=== PATIENT | female | born 1965 | race Caucasian/White ===

== ENCOUNTER 2016-04-17 17:59 | Emergency (ER) | payer BC ==
--- NOTE | 2016-04-17 18:30 | ED.PDOC ---
History of Present Illness - General Chief Complaint: Upper Extremity Injury Stated Complaint: thumb pain s/p fall Time Seen by Provider: 04/17/16 18:28 Source: patient Exam Limitations: no limitations - History of Present Illness Initial Comments: Patient stated while coming out of the store at a gas station while talking to her friend she trippedfell to the ground and was able to brace her fall with her right thumb.Denies dizziness,head or neck injuries,hip,knee,or foot pain.She stated it happened at one of the gas station in [place] this pm. Occurred: this afternoon Pain - Upper Extremity: moderate: Hand, right - thumb Method of Injury: fell Improving Factors: nothing Worsening Factors: movement Associated Symptoms: pain movement right thumb Allergies/Adverse Reactions: Allergies Cephalexin [From Keflex] Allergy (Verified 06/24/14 16:43) Penicillin G Allergy (Verified 06/24/14 16:43) Venlafaxine [From Effexor] Allergy (Verified 06/24/14 16:43) Home Medications: Ambulatory Orders Carbamazepine [Tegretol-Xr] 200 mg PO BEDTIME 01/07/14 Carbamazepine [Tegretol-Xr] 400 mg PO DAILY 01/07/14 Acetaminophen W/ Codeine [Tylenol w/Codeine 300-30 mg] 1 tab PO Q6-8H PRN #30 tab 06/24/14 Ciprofloxacin [Cipro] 500 mg PO BID #14 tab 12/17/14 Ibuprofen [Motrin Tab] 600 mg PO Q8H PRN #15 tab 12/17/14 traMADol 37.5MG/APAP 325MG [Ultracet] 1 ea PO Q6H PRN #12 tab 12/17/14 Review of Systems - Review of Systems Constitutional: States: no symptoms reported EENTM: States: no symptoms reported Respiratory: States: no symptoms reported Cardiology: States: no symptoms reported Gastrointestinal/Abdominal: States: no symptoms reported Genitourinary: States: no symptoms reported Musculoskeletal: States: see HPI, joint pain - right thumb mcp joint Skin: States: no symptoms reported Neurological: States: no symptoms reported Endocrine: States: no symptoms reported Past Medical History (General) - Patient Medical History Hx Seizures: No Hx Stroke: No Hx Dementia: No Hx Asthma: Yes Hx of COPD: No Hx Cardiac Disorders: No Hx Congestive Heart Failure: No Hx Pacemaker: No Hx Hypertension: No Hx Thyroid Disease: Yes Hx Diabetes: No Hx Gastroesophageal Reflux: No Hx Renal Disease: No Hx Cancer: No Hx of HIV: No Hx Hepatitis C: No Hx MRSA: No Hx Other PMH: Yes - bipolar,anxiety Surgical History: appendectomy, cholecystectomy, other - neck,tahbso - Vaccination History Hx Tetanus, Diphtheria Vaccination: No Hx Influenza Vaccination: No Hx Pneumococcal Vaccination: No - Social History Hx Tobacco Use: No Hx Chewing Tobacco Use: No Hx Alcohol Use: No Hx Substance Use: No Hx Substance Use Treatment: No Hx Depression: No Hx Physical Abuse: No Hx Emotional Abuse: No Hx Suspected Abuse: No - Activities of Daily Living Patient Lives Alone: No - lives with family Hospice Agency (if applicable):: None - Female History Patient is a Female of Child Bearing Age (10 -59 yrs old): No Patient : No Family Medical History - Family History Brother Living Status: Hx Family Cancer: Yes - melanoma-brother,leukemia-mom, Hx Family;Other: non hodgkins lymphoma daughter Mother Living Status: Still Living Hx Family Cancer: Yes - leukemia Father Living Status: Still Living Hx Family Hypertension: Yes Hx Cardiac Disease: Yes Physical Exam - Physical Exam General Appearance: Alert, Comfortable, No apparent distress, Other - left handed Eyes, Ears, Nose, Throat Exam: PERRL/EOMI, normal ENT inspection, TMs normal, pharynx normal Neck: non-tender, full range of motion, supple, normal inspection Cardiovascular/Respiratory: regular rate, rhythm, no M/R/G, normal peripheral pulses, no JVD Abdominal Exam: non-tender, no organomegaly Back Exam: normal inspection, no CVA tenderness, no vertebral tenderness Shoulder Exam: non-tender, no evidence of injury Elbow/Forearm Exam: non-tender, no evidence of injury Wrist Exam: non-tender, no evidence of injury Hand Exam: bone tenderness - right thumb, limited ROM - right thumb, soft tissue tenderness Neuro/Tendon: normal sensation, normal motor functions, normal tendon functions , responds to pain, no evidence tendon injury Mental Status: alert, oriented x 3 Skin Exam: normal color, warm/dry Progress - Results/Orders Results/Orders: Velcro right thumb spica applied by the nurse - EKG/XRAY/CT XRAY: right thumb-no fracture Departure - Departure Clinical Impression: Fall on same level from slipping, tripping and stumbling Sprain of right thumb Qualifiers: Encounter type: initial encounter Qualifier Code: (S63.601A) Unspecified sprain of right thumb, initial encounter Time of Disposition: 19:26 Disposition: Discharge to Home or Self Care Condition: Good Departure Forms: ED Discharge - Pt. Copy, Patient Portal Self Enrollment Instructions: Finger Sprain, DI for Finger Sprain Home Medications: Ambulatory Orders Carbamazepine [Tegretol-Xr] 200 mg PO BEDTIME 01/07/14 Carbamazepine [Tegretol-Xr] 400 mg PO DAILY 01/07/14 Acetaminophen W/ Codeine [Tylenol w/Codeine 300-30 mg] 1 tab PO Q6-8H PRN #30 tab 06/24/14 Ciprofloxacin [Cipro] 500 mg PO BID #14 tab 12/17/14 Ibuprofen [Motrin Tab] 600 mg PO Q8H PRN #15 tab 12/17/14 traMADol 37.5MG/APAP 325MG [Ultracet] 1 ea PO Q6H PRN #12 tab 12/17/14 Additional Instructions: Continue with ice pack 15 minutes 3x a day during waking hours only until better ;Elevate right hand 20 degrees at bedtime;FOLLOW UP WITH PRIMARY MD IN ONE WEEK
--- NOTE | 2016-04-17 19:17 | RAD ---
EXAM: Thumb,Right CLINICAL INDICATION: 50-year-old female status post fall. COMPARISON: None. TECHNIQUE: Three views first digit RIGHT hand were obtained in AP, lateral and oblique projections FINDINGS: RIGHT hand first digit: There is no fracture or dislocation. The joint spaces are preserved. No soft tissue abnormalities are seen. IMPRESSION: No acute radiographic abnormality. Electronically signed by: Paula Wodos MD 04/17/2016 6:40 PM CORE COMPOSER FEEDER
[2016-04-17 19:29] VITALS: O2SAT 98
[2016-04-17 19:40] VITALS: BP 150/86; TEMP 98.2
[2016-04-17] MEDS: traMADol HCL 50 MG (ER DISP) # 6 TABS PO ONE (22:48)
--- NOTE | 2016-04-20 14:09 | RAD ---
EXAM: Thumb,Right CLINICAL INDICATION: 50-year-old female status post fall. COMPARISON: None. TECHNIQUE: Three views first digit RIGHT hand were obtained in AP, lateral and oblique projections FINDINGS: RIGHT hand first digit: There is no fracture or dislocation. The joint spaces are preserved. No soft tissue abnormalities are seen. IMPRESSION: No acute radiographic abnormality. Electronically signed by: Paula Woods MD 04/17/2016 6:40 PM PROFESSOR OF EDUCATION
--- NOTE | 2016-05-14 23:49 | RAD ---
EXAM: Thumb,Right CLINICAL INDICATION: 50-year-old female status post fall. COMPARISON: None. TECHNIQUE: Three views first digit RIGHT hand were obtained in AP, lateral and oblique projections FINDINGS: RIGHT hand first digit: There is no fracture or dislocation. The joint spaces are preserved. No soft tissue abnormalities are seen. IMPRESSION: No acute radiographic abnormality. Electronically signed by: Paula Woods MD 04/17/2016 6:40 PM SENIOR ACCOUNTING MANAGER
--- NOTE | 2016-05-14 23:49 | RAD ---
EXAM: Thumb,Right CLINICAL INDICATION: 50-year-old female status post fall. COMPARISON: None. TECHNIQUE: Three views first digit RIGHT hand were obtained in AP, lateral and oblique projections FINDINGS: RIGHT hand first digit: There is no fracture or dislocation. The joint spaces are preserved. No soft tissue abnormalities are seen. IMPRESSION: No acute radiographic abnormality. Electronically signed by: Paula Woods MD 04/17/2016 6:40 PM STOCKROOM INVENTORY CLERK
== END 2016-04-17 19:39 | disposition home or self-care (01) ==
LOC: ER 17:59
DX: S63.601A Unspecified sprain of right thumb, initial encounter (principal); E07.9 Disorder of thyroid, unspecified; Z88.0 Allergy status to penicillin; Z88.3 Allergy status to other anti-infective agents; Z79.899 Other long term (current) drug therapy; Z80.6 Family history of leukemia; J45.909 Unspecified asthma, uncomplicated; W01.0XXA Fall on same level from slipping, tripping and stumbling without subsequent striking against object, initial encounter; Y92.524 Gas station as the place of occurrence of the external cause

== ENCOUNTER 2016-06-03 17:19 | Emergency (ER) | payer BC ==
--- NOTE | 2016-06-03 17:50 | ED.PDOC ---
History of Present Illness - General Chief Complaint: Respiratory Problem Stated Complaint: SOB and hands cramping up Time Seen by Provider: 06/03/16 17:32 Source: patient, RN notes reviewed, Vital Signs reviewed Exam Limitations: no limitations - History of Present Illness Initial Comments: Patient reports she was having a bowel movement when she developed some abd pain and felt like she was going to pass out. Her hands started cramping up and she got scared and called EMS. When they got there she was hyperventilating and appeared very anxious. She was just seen in ER in [place] yesterday and was diagnosed with acute bronchitis and is on Zithromax and Promethazine DM cough syrup. Reports she now feels fine and is having no symptoms. Timing/Duration: 1 hour Severity: severe Activities at Onset: other - was having a bowel movement. Possible Cause: occasional episodes - Years ago she had a panic attack. Improving Factors: rest Worsening Factors: nothing Associated Symptoms: anxiety, cough, lightheadedness Respiratory Risk Factors: other - currently has bronchitis Allergies/Adverse Reactions: Allergies Cephalexin [From Keflex] Allergy (Verified 06/24/14 16:43) Penicillin G Allergy (Verified 06/24/14 16:43) Venlafaxine [From Effexor] Allergy (Verified 06/24/14 16:43) Home Medications: Ambulatory Orders Carbamazepine [Tegretol-Xr] 200 mg PO BEDTIME 01/07/14 Carbamazepine [Tegretol-Xr] 400 mg PO DAILY 01/07/14 Acetaminophen W/ Codeine [Tylenol w/Codeine 300-30 mg] 1 tab PO Q6-8H PRN #30 tab 06/24/14 Ciprofloxacin [Cipro] 500 mg PO BID #14 tab 12/17/14 Ibuprofen [Motrin Tab] 600 mg PO Q8H PRN #15 tab 12/17/14 traMADol 37.5MG/APAP 325MG [Ultracet] 1 ea PO Q6H PRN #12 tab 12/17/14 Review of Systems - Review of Systems Constitutional: States: no symptoms reported. Denies: chills, diaphoresis, fever, malaise, weakness EENTM: States: ear pain - on Right, other - Sinus pain on Right Respiratory: States: cough, short of breath. Denies: orthopnea, stridor, wheezing Cardiology: States: no symptoms reported. Denies: chest pain, edema, palpitations, syncope Gastrointestinal/Abdominal: States: abdominal pain. Denies: constipation, diarrhea, nausea, vomiting Genitourinary: States: no symptoms reported Musculoskeletal: States: muscle stiffness - bilateral hand cramping Skin: States: no symptoms reported Neurological: States: anxiety, headache. Denies: numbness, paresthesia, pre- existing deficit, tingling, tremors Endocrine: States: no symptoms reported Past Medical History (General) - Patient Medical History Hx Seizures: No Hx Stroke: No Hx Dementia: No Hx Asthma: Yes Hx of COPD: No Hx Cardiac Disorders: No Hx Congestive Heart Failure: No Hx Pacemaker: No Hx Hypertension: No Hx Thyroid Disease: Yes Hx Diabetes: No Hx Gastroesophageal Reflux: No Hx Renal Disease: No Hx Cancer: No Hx of HIV: No Hx Hepatitis C: No Hx MRSA: No - Vaccination History Hx Tetanus, Diphtheria Vaccination: No Hx Influenza Vaccination: No Hx Pneumococcal Vaccination: No - Social History Hx Tobacco Use: No Hx Chewing Tobacco Use: No Hx Alcohol Use: No Hx Substance Use: No Hx Substance Use Treatment: No Hx Depression: No Hx Physical Abuse: No Hx Emotional Abuse: No Hx Suspected Abuse: No - Female History Patient : No Family Medical History - Family History Brother Living Status: Hx Family Cancer: Yes - melanoma-brother,leukemia-mom, Hx Family;Other: non hodgkins lymphoma daughter Mother Living Status: Still Living Hx Family Cancer: Yes - leukemia Father Living Status: Still Living Hx Family Hypertension: Yes Hx Cardiac Disease: Yes Physical Exam - Physical Exam General Appearance: Alert, Comfortable, No apparent distress, Well Developed, Well Groomed, Well Hydrated, Well Nourished Neck: non-tender, full range of motion, supple, normal inspection Respiratory: chest non-tender, lungs clear, normal breath sounds, no respiratory distress, no accessory muscle use Cardiovascular/Chest: regular rate, rhythm, no edema, no gallop, no JVD, no murmur Extremity: normal range of motion, non-tender, normal inspection Neurologic: thread winder II-XII nml as tested, no motor/sensory deficits, alert, normal mood/affect, oriented x 3 Skin Exam: normal color, warm/dry Lymphatic: no adenopathy Progress - Progress Progress: 06/03/16 18:26 Patient is feeling fine and would like to go home. Departure - Departure Clinical Impression: Vagal reaction, Hyperventilation, Panic attack Time of Disposition: 18:27 Disposition: Discharge to Home or Self Care Condition: Good Departure Forms: ED Discharge - Pt. Copy, Patient Portal Self Enrollment Instructions: DI for Hyperventilation, DI for Panic Disorder Diet: resume usual diet Activity: increase activity as tolerated Home Medications: Ambulatory Orders Carbamazepine [Tegretol-Xr] 200 mg PO BEDTIME 01/07/14 Carbamazepine [Tegretol-Xr] 400 mg PO DAILY 01/07/14 Acetaminophen W/ Codeine [Tylenol w/Codeine 300-30 mg] 1 tab PO Q6-8H PRN #30 tab 06/24/14 Ciprofloxacin [Cipro] 500 mg PO BID #14 tab 12/17/14 Ibuprofen [Motrin Tab] 600 mg PO Q8H PRN #15 tab 12/17/14 traMADol 37.5MG/APAP 325MG [Ultracet] 1 ea PO Q6H PRN #12 tab 12/17/14
[2016-06-03 18:46] VITALS: BP 118/63; O2SAT 99
[2016-06-04 08:38] VITALS: TEMP 99.7
== END 2016-06-03 18:44 | disposition home or self-care (01) ==
LOC: ER 17:19
DX: F41.0 Panic disorder [episodic paroxysmal anxiety] (principal); R06.4 Hyperventilation; J45.909 Unspecified asthma, uncomplicated; E07.9 Disorder of thyroid, unspecified; Z88.0 Allergy status to penicillin; Z88.3 Allergy status to other anti-infective agents; Z79.899 Other long term (current) drug therapy

== ENCOUNTER 2016-09-12 08:39 | Emergency (ER) | payer BC, OTHER ==
[2016-09-12 08:51] VITALS: TEMP 97.9
--- NOTE | 2016-09-12 09:02 | ED.PDOC ---
History of Present Illness - General Chief Complaint: General Stated Complaint: nausea, joint pain Time Seen by Provider: 09/12/16 08:54 Source: patient, RN notes reviewed, Vital Signs reviewed Exam Limitations: no limitations - History of Present Illness Initial Comments: Patient comes in with generalized body aches that are worse in her elbows and her knees and nausea that started yesterday. Not improving with OTC and prescription medications, Reglan, Lidocaine cream, Tylenol, Tyl #3, etc. Denies fever, chills, vomiting or diarrhea. + urinary urgency and frequency. Generalized abd discomfort for ~1 month. + back pain. Timing/Duration: 24 hours Severity: moderate Improving Factors: nothing Worsening Factors: nothing Associated Symptoms: nausea/vomiting Allergies/Adverse Reactions: Allergies Cephalexin [From Keflex] Allergy (Verified 09/12/16 08:51) Penicillin G Allergy (Verified 09/12/16 08:51) Venlafaxine [From Effexor] Allergy (Verified 09/12/16 08:51) Home Medications: Ambulatory Orders Carbamazepine [Tegretol] 200 mg PO BEDTIME 06/04/16 Paroxetine HCl [Paxil] 40 mg PO BEDTIME 06/04/16 Ondansetron Odt [Zofran ODT] 8 mg PO Q6HR PRN #12 tab 09/12/16 Review of Systems - Review of Systems Constitutional: States: malaise. Denies: chills, fever, weakness EENTM: States: no symptoms reported Respiratory: States: no symptoms reported Cardiology: States: no symptoms reported Gastrointestinal/Abdominal: States: see HPI, abdominal pain - mild, generalized , nausea. Denies: constipation, diarrhea, vomiting Genitourinary: States: frequency, other - urgency. Denies: dysuria, pain Musculoskeletal: States: back pain, joint pain Skin: States: no symptoms reported Neurological: States: no symptoms reported All other Systems: No Change from Baseline Past Medical History (General) - Patient Medical History Hx Seizures: No Hx Stroke: No Hx Dementia: No Hx Asthma: Yes Hx of COPD: No Hx Cardiac Disorders: No Hx Congestive Heart Failure: No Hx Pacemaker: No Hx Hypertension: No Hx Thyroid Disease: Yes Hx Diabetes: No Hx Gastroesophageal Reflux: No Hx Renal Disease: No Hx Cancer: No Hx of HIV: No Hx Hepatitis C: No Hx MRSA: No Surgical History: appendectomy, cholecystectomy - Vaccination History Hx Tetanus, Diphtheria Vaccination: Yes Hx Influenza Vaccination: Yes Hx Pneumococcal Vaccination: Yes - Social History Hx Tobacco Use: No Hx Chewing Tobacco Use: No Hx Alcohol Use: No Hx Substance Use: No Hx Substance Use Treatment: No Hx Depression: No Hx Physical Abuse: No Hx Emotional Abuse: No Hx Suspected Abuse: No - Activities of Daily Living Hospice Agency (if applicable):: None - Female History Patient is a Female of Child Bearing Age (10 -59 yrs old): No Patient : No Family Medical History - Family History Brother Living Status: Hx Family Cancer: Yes - melanoma-brother,leukemia-mom, Hx Family;Other: non hodgkins lymphoma daughter Mother Living Status: Still Living Hx Family Cancer: Yes - leukemia Father Living Status: Still Living Hx Family Hypertension: Yes Hx Cardiac Disease: Yes Physical Exam - Physical Exam General Appearance: Alert, Comfortable, No apparent distress, Well Developed, Well Groomed, Well Hydrated, Well Nourished Ears, Nose, Throat: hearing grossly normal Neck: full range of motion, supple, normal inspection Respiratory: lungs clear, normal breath sounds, no respiratory distress, no accessory muscle use Cardiovascular/Chest: regular rate, rhythm, no gallop, no JVD, no murmur Gastrointestinal/Abdominal: normal bowel sounds, non tender, soft, no organomegaly, no pulsatile mass Back Exam: no CVA tenderness, no vertebral tenderness Extremity: normal range of motion, normal inspection Neurologic: alert, normal mood/affect, oriented x 3 Skin Exam: normal color Comments: Vital Signs 09/12/16 08:45 Temperature 97.9 F Pulse Rate [ 94 H pulse ox] Respiratory 20 Rate Blood Pressure 153/88 [Left Arm] O2 Sat by Pulse 96 Oximetry Progress - Progress Progress: 09/12/16 09:55 Still awaiting urine sample. She had a mild panic attack in the bathroom where she felt like she was going to pass out so was unable to collect a sample. Nursing was unable to get an IV so changed Zofran to ODT and will give Toradol 60mg IM for pain. Overall labs look OK. AST/ALT are mildly elevated. 09/12/16 10:39 Patient continues to have N//V despite Zofran ODT. Will attempt IV again to give IV medications and a fluid bolus. 09/12/16 11:12 Patient is sleeping comfortable. Urine only shows trace blood but no infection. After fluid bolus will plan to d/c home for further workup with her PCP regarding elevated liver enzymes and hematuria. 09/12/16 11:56 Patient is feeling better. Discussed need for follow up. - Results/Orders Results/Orders: Laboratory Tests 09/12/16 09/12/16 09/12/16 09:10 09:10 10:03 WBC 7.4 RBC 4.66 Hgb 14.1 Hct 41.9 MCV 89.9 MCH 30.3 MCHC 33.7 RDW 13.3 Plt Count 242 MPV 7.4 Absolute Neuts (auto) 5.70 Absolute Lymphs (auto) 1.40 Absolute Monos (auto) 0.30 Absolute Eos (auto) 0.00 Absolute Basos (auto) 0.00 Neutrophils % 76.6 Lymphocytes % 18.7 L Monocytes % 3.9 Eosinophils % 0.2 L Basophils % 0.6 Sodium 138 Potassium 3.3 L Chloride 102 Carbon Dioxide 24 Anion Gap 15.3 BUN 7 Creatinine 0.62 BUN/Creatinine Ratio 11.3 Random Glucose 116 H Serum Osmolality 274.6 L Calcium 9.5 Total Bilirubin 0.6 AST 62 H ALT 65 H Alkaline Phosphatase 97 Serum Total Protein 8.3 H Albumin 4.4 Globulin 3.9 H Albumin/Globulin Ratio 1.1 Urine Color Yellow Urine Appearance Clear Urine pH 7.5 Ur Specific [place] 1.015 Urine Protein 30 Urine Glucose (UA) Negative Urine Ketones >=160 Urine Blood Small H Urine Nitrite Negative Urine Bilirubin Negative Urine Urobilinogen 1.0 Ur Leukocyte Esterase Negative Urine RBC 1-3 Urine WBC 0 Ur Epithelial Cells 1-3 Urine Bacteria 0 Departure - Departure Clinical Impression: Systemic viral illness, Dehydration Time of Disposition: 11:57 Disposition: Discharge to Home or Self Care Condition: Good Departure Forms: ED Discharge - Pt. Copy, Patient Portal Self Enrollment Instructions: DI for Viral Syndrome Diet: resume usual diet Activity: increase activity as tolerated Referrals: RONNY HARLEY IV TEXTILE SUPERVISOR [Primary Care Provider] - 1-2 Weeks Prescriptions: Ondansetron Odt [Zofran ODT] 8 mg PO Q6HR PRN #12 tab PRN Reason: Nausea/Vomiting Home Medications: Ambulatory Orders Carbamazepine [Tegretol] 200 mg PO BEDTIME 06/04/16 Paroxetine HCl [Paxil] 40 mg PO BEDTIME 06/04/16 Ondansetron Odt [Zofran ODT] 8 mg PO Q6HR PRN #12 tab 09/12/16
[2016-09-12] MEDS: ONDANSETRON INJ 4 MG/2 ML VIAL IV ONE ×2 (09:21→09:43)
[2016-09-12] MEDS ORDERED: ONDANSETRON ODT 8 MG TAB SL ONE (09:42)
[2016-09-12] MEDS ORDERED: KETOROLAC TROMETHAMINE INJ 60 MG/2 ML VIAL IM ONE (09:55)
[2016-09-12] MEDS ORDERED: PROMETHAZINE HCL INJ 25 MG in SODIUM CHLORIDE 0.9% 50ML 50 ML IVPB ONE (10:41)
[2016-09-12] MEDS ORDERED: SODIUM CHLORIDE 0.9% 1000ML 1,000 ML IVS ONE (10:41)
[2016-09-12] MEDS ORDERED: SODIUM CHLORIDE 0.9% 50ML 50 ML ONE (10:44)
[2016-09-12] MEDS ORDERED: PROMETHAZINE HCL INJ 25 MG/ML VIAL ONE (10:44)
[2016-09-12 12:29] VITALS: BP 136/79; O2SAT 97
== END 2016-09-12 12:25 | disposition home or self-care (01) ==
LOC: ER 08:39
DX: B34.9 Viral infection, unspecified (principal); E86.0 Dehydration; J45.909 Unspecified asthma, uncomplicated; E07.9 Disorder of thyroid, unspecified; Z88.0 Allergy status to penicillin; Z88.1 Allergy status to other antibiotic agents; Z79.899 Other long term (current) drug therapy
CPT/HCPCS: 36415; 80053; 81001; 85025; A4216; J1885; J2550; J7030

== ENCOUNTER → 2017-02-12 | Emergency (ER) | payer OTHER ==
[~2017-02-12] MED LIST: KETOROLAC TROMETHAMINE INJ 60 MG/2 ML VIAL IM ONE; NOREPINEPHRINE BITARTRATE 4 MG/4 ML VIAL IVPB ONE; TRIAMCINOLONE ACETONIDE INJ 40 MG/ML VIAL IM ONE; fentaNYL CITRATE INJ 50 MCG/ML AMP IV ONE
--- NOTE | 2017-02-13 02:49 | RAD ---
EXAM DESCRIPTION: Lumbar Spine 3 Views CLINICAL HISTORY: back pain COMPARISON: 07/21/2012 FINDINGS: 3 views of the lumbar spine. 5 nonrib-bearing lumbar vertebrae. Postoperative change in the right upper abdomen. Vertebral body heights preserved. Mild loss of intervertebral disc height at L3/4 through L5/S1 with minimal endplate spondylosis. Atherosclerotic vascular calcification. No abnormalities of visualized sacrum or pelvic bones. IMPRESSION: No acute abnormality of the lumbar spine by plain film criteria. Electronically signed by: Dago Brizuela 02/13/2017 2:47 AM [facility]
== END ==
LOC: ER 17:00
DX: S39.012A Strain of muscle, fascia and tendon of lower back, initial encounter (principal); G89.29 Other chronic pain; M54.9 Dorsalgia, unspecified; X58.XXXA Exposure to other specified factors, initial encounter; Y92.9 Unspecified place or not applicable
CPT/HCPCS: J1885; J3010; J3301

== ENCOUNTER 2019-07-22 15:39 | Emergency (ER) | payer SELFPAY ==
[2019-07-22] MEDS ORDERED: IBUPROFEN 200 MG TAB PO ONE (17:52)
[2019-07-22 17:56] VITALS: BP 153/105; TEMP 98.3; O2SAT 98
--- NOTE | 2019-07-22 18:34 | RAD ---
EXAM DESCRIPTION: Hand,Left 2 Views CLINICAL HISTORY: 53 years Female Injury COMPARISON: None TECHNIQUE: Two images of the left hand were obtained. FINDINGS: No fracture seen. Normal bony mineralization. No erosive or lytic lesions seen. No radiopaque foreign body. IMPRESSION: No acute fracture or dislocation seen. Electronically signed by: Janet Conteh MD 07/22/2019 6:33 PM CDT
--- NOTE | 2019-07-22 18:35 | RAD ---
EXAM DESCRIPTION: Tibia/Fibula,Right CLINICAL HISTORY: 53 years Female Injury COMPARISON: None TECHNIQUE: Two images of the right tibia and fibula were obtained. FINDINGS: No fracture seen. Normal bony mineralization. No erosive or lytic lesions seen. IMPRESSION: No fracture or dislocation noted. Electronically signed by: Janet Conteh MD 07/22/2019 6:34 PM CDT
[2019-07-22] MEDS ORDERED: KETOROLAC TROMETHAMINE INJ 60 MG/2 ML VIAL IM ONE (18:38)
--- NOTE | 2019-07-22 18:38 | ED.PDOC ---
History of Present Illness - General Chief Complaint: Lower Extremity Injury Time Seen by Provider: 07/22/19 18:31 Source: patient, family Exam Limitations: no limitations - History of Present Illness Initial Comments: PT WAS WORKING OUTSIDE, HAULING DIRT, WHEN SHE TRIPPED AND FELL AGAINST A TRASH CAN. R DAMIAN HIT TRASH CAN HANDLE, L HAND HIT GROUND. PAIN R DAMIAN AND L HAND. NO HEAD COLLISION. DENIES LOC. DENIES PAIN ANYWHERE ELSE. Occurred: just prior to arrival Severity: moderate Pain Location: upper extremity, lower extremity Method of Injury: fall Improving Factors: nothing Worsening Factors: movement Loss of Consciousness: no loss of consciousness Associated Symptoms (Fall): denies symptoms Allergies/Adverse Reactions: Allergies Cephalexin [From Keflex] Allergy (Verified 09/12/16 08:51) Penicillin G Allergy (Verified 09/12/16 08:51) Venlafaxine [From Effexor] Allergy (Verified 09/12/16 08:51) Home Medications: Ambulatory Orders Carbamazepine [Tegretol] 200 mg PO BEDTIME 06/04/16 Escitalopram Oxalate 10 mg PO DAILY 07/22/19 Review of Systems - Review of Systems Constitutional: States: no symptoms reported EENTM: Denies: ear pain, nose pain, throat pain, mouth pain Respiratory: Denies: cough, short of breath Cardiology: Denies: chest pain, palpitations Gastrointestinal/Abdominal: Denies: abdominal pain, nausea Genitourinary: States: no symptoms reported Musculoskeletal: States: see HPI. Denies: back pain, neck pain Skin: Denies: lesions, rash Neurological: Denies: headache, paresthesia, weakness Endocrine: States: no symptoms reported Hematologic/Lymphatic: States: no symptoms reported All other Systems: Reviewed and Negative Past Medical History (General) - Patient Medical History Hx Seizures: No Hx Stroke: No Hx Dementia: No Hx Asthma: Yes Hx of COPD: No Hx Cardiac Disorders: No Hx Congestive Heart Failure: No Hx Pacemaker: No Hx Hypertension: No Hx Thyroid Disease: Yes Hx Diabetes: No Hx Gastroesophageal Reflux: No Hx Renal Disease: No Hx Cancer: No Hx of HIV: No Hx Hepatitis C: No Hx MRSA: No Surgical History: appendectomy, cholecystectomy, Hysterectomy - Vaccination History Hx Tetanus, Diphtheria Vaccination: No Hx Influenza Vaccination: No Hx Pneumococcal Vaccination: No - Social History Hx Tobacco Use: Yes Hx Chewing Tobacco Use: No Hx Alcohol Use: Yes Hx Substance Use: No Hx Substance Use Treatment: No Hx Depression: No Hx Physical Abuse: No Hx Emotional Abuse: No Hx Suspected Abuse: No - Female History Patient : No Family Medical History - Family History Brother Living Status: Hx Family Cancer: Yes - melanoma-brother,leukemia-mom, Hx Family;Other: non hodgkins lymphoma daughter Mother Living Status: Still Living Hx Family Cancer: Yes - leukemia Father Living Status: Still Living Hx Family Hypertension: Yes Hx Cardiac Disease: Yes Physical Exam - Physical Exam General Appearance: Alert, Well Developed Head Injury: no evidence of injury Eye Exam: bilateral normal ENT Exam: hearing grossly normal, no evidence of ENT injury, no dental injury Neck Exam: non-tender, full range of motion, normal inspection Cardiovascular/Respiratory: regular rate, rhythm, normal peripheral pulses, normal breath sounds, no respiratory distress Gastrointestinal/Abdominal: non tender, soft Back Exam: no CVA tenderness, no vertebral tenderness Extremity Exam: no pedal edema, pelvis stable, pain with movement - IN R TIBIA AND L DORSUM OF HAND. , tenderness Neurologic: no motor/sensory deficits, alert Skin Exam: other - R TIBIA TTP, POS ABRASION. R ANKLE, FOOT, KNEE WITH NL STRENTHAND PAINLESS FROM. L DORSUM OF HAND TTP, VISIBLE EDEMA. 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 - Carlos Coma Score Carlos Total: 15 Progress - Progress Progress: 07/22/19 18:37 XRAY PENDING. IBUPROFEN 800 MG DIDN'T HELP, THUS GIVING TORADOL SHOT. 07/22/19 18:42 L HAND AND R TIBIA/FIBULA FRX NEG FOR FRX. POS FOR CONTUSION AND PAIN. SAFE FOR DC TO HOME WITH R.I.C.E. INSTRUCTIONS. Departure - Departure Clinical Impression: Contusion of right tibia, Hand pain, left, Pain of right tibia Contusion of left hand Qualifiers: Encounter type: initial encounter Qualified Code(s): S60.222A - Contusion of left hand, initial encounter Disposition: Discharge to Home or Self Care Condition: Good Departure Forms: ED Discharge - Pt. Copy, Patient Portal Self Enrollment Instructions: Contusion (DC) Diet: resume usual diet Activity: increase activity as tolerated Referrals: RONNY HARLEY IV PHOTOGRAPHIC TECHNICIAN [Primary Care Provider] - 1-2 Weeks Home Medications: Ambulatory Orders Carbamazepine [Tegretol] 200 mg PO BEDTIME 06/04/16 Escitalopram Oxalate 10 mg PO DAILY 07/22/19 Additional Instructions: Please take ibuprofen as needed. You bruised the areas and did not break anything. For a few days, rest the areas, apply ice, and elevate on a pillow until you are feeling better.
== END 2019-07-22 19:02 | disposition home or self-care (01) ==
LOC: ER 15:39
DX: S80.11XA Contusion of right lower leg, initial encounter (principal); S60.222A Contusion of left hand, initial encounter; F17.200 Nicotine dependence, unspecified, uncomplicated; W01.0XXA Fall on same level from slipping, tripping and stumbling without subsequent striking against object, initial encounter; Y92.9 Unspecified place or not applicable
CPT/HCPCS: 73120; 73590; J1885

== ENCOUNTER 2020-03-15 01:02 | Emergency (ER) | payer SELFPAY ==
--- NOTE | 2020-03-15 01:11 | ED.PDOC ---
History of Present Illness - General Chief Complaint: Respiratory Problem Time Seen by Provider: 03/15/20 01:04 Source: patient, RN notes reviewed, Vital Signs reviewed Exam Limitations: no limitations - History of Present Illness Comments: 54 yo F with hx of asthma comes in with 3 days of cough. states the past week thought she had allergies, but over the past few days has gotten really bad body aches, subjective fever, malaise. denies sore throat, change in taste or smell. no shortness of breath. Cough Quality/Degree: moderate, dry cough Associated Symptoms: muscle aches Allergies/Adverse Reactions: Allergies Cephalexin [From Keflex] Allergy (Verified 09/12/16 08:51) Penicillin G Allergy (Verified 09/12/16 08:51) Venlafaxine [From Effexor] Allergy (Verified 09/12/16 08:51) Home Medications: Ambulatory Orders Carbamazepine [Tegretol] 200 mg PO BEDTIME 06/04/16 Escitalopram Oxalate 10 mg PO DAILY 07/22/19 Dexamethasone [Decadron] 4 mg PO DAILY #5 tab 03/15/20 Review of Systems - Review of Systems Constitutional: States: fever - subjective, malaise. Denies: chills EENTM: Denies: blurred vision, throat pain Respiratory: States: cough. Denies: short of breath Cardiology: Denies: chest pain Gastrointestinal/Abdominal: Denies: abdominal pain, nausea, vomiting Genitourinary: Denies: frequency Musculoskeletal: States: muscle pain Skin: Denies: rash Neurological: Denies: headache, paresthesia Endocrine: Denies: unexplained weight loss Hematologic/Lymphatic: Denies: blood clots, easy bleeding, easy bruising Past Medical History (General) - Patient Medical History Hx Seizures: No Hx Stroke: No Hx Dementia: No Hx Asthma: Yes Hx of COPD: No Hx Cardiac Disorders: No Hx Congestive Heart Failure: No Hx Pacemaker: No Hx Hypertension: No Hx Thyroid Disease: Yes Hx Diabetes: No Hx Gastroesophageal Reflux: No Hx Renal Disease: No Hx Cancer: No Hx of HIV: No Hx Hepatitis C: No Hx MRSA: No - Vaccination History Hx Tetanus, Diphtheria Vaccination: No Hx Influenza Vaccination: No Hx Pneumococcal Vaccination: No - Social History Hx Tobacco Use: Yes Hx Chewing Tobacco Use: No Hx Alcohol Use: Yes Hx Substance Use: No Hx Substance Use Treatment: No Hx Depression: No Hx Physical Abuse: No Hx Emotional Abuse: No Hx Suspected Abuse: No - Female History Patient : No Family Medical History - Family History Brother Living Status: Hx Family Cancer: Yes - melanoma-brother,leukemia-mom, Hx Family;Other: non hodgkins lymphoma daughter Mother Living Status: Still Living Hx Family Cancer: Yes - leukemia Father Living Status: Still Living Hx Family Hypertension: Yes Hx Cardiac Disease: Yes Physical Exam - Physical Exam General Appearance: Alert, Comfortable, No apparent distress, Well Developed, Well Groomed, Well Hydrated, Well Nourished Eye Exam: bilateral normal ENT Exam: hearing grossly normal Neck: non-tender, full range of motion, supple, normal inspection, trachea midline Respiratory: chest non-tender, lungs clear, normal breath sounds, no respiratory distress, no accessory muscle use Cardiovascular/Chest: normal peripheral pulses, regular rate, rhythm, no edema, no gallop, no JVD, no murmur Gastrointestinal/Abdominal: normal bowel sounds, non tender, soft, no organomegaly, no pulsatile mass Extremity: normal range of motion, non-tender, normal inspection, no pedal edema, no calf tenderness, normal capillary refill Neurologic: agile scrum master II-XII nml as tested, no motor/sensory deficits, alert, normal mood/affect, oriented x 3 Skin Exam: normal color, warm/dry Progress - Progress Progress: 03/15/20 02:11 delay in dispo, pending xray. The data reviewed when caring for this patient included: nurse notes, prior records, etc. The history and assessments from nurses notes were reviewed and considered, and the patient's home medication list was also reviewed and considered. My assessment and the results of testing completed here in the ED were discussed with the patient. All questions were answered, and they express understanding of my assessment and the plan. They have been instructed to return if their symptoms worsen, and have been asked to follow up with their primary care physician to recheck today's presenting complaint. Strict return precautions given. I have reviewed medication, benefits, alternatives and side effects. Patient decided to proceed with medication. Marla Marcum DO #[id number] - EKG/XRAY/CT XRAY: chest - no acute cardiopulmonary pathology. Departure - Departure Clinical Impression: COVID-19 Time of Disposition: 02:10 Disposition: Discharge to Home or Self Care Departure Forms: ED Discharge - Pt. Copy, Patient Portal Self Enrollment Instructions: Coronavirus Disease 2019 (COVID-19) Diet: resume usual diet Activity: increase activity as tolerated Referrals: Philip Pineda MD [Primary Care Provider] - 1-5 Days Prescriptions: Dexamethasone [Decadron] 4 mg PO DAILY #5 tab Home Medications: Ambulatory Orders Carbamazepine [Tegretol] 200 mg PO BEDTIME 06/04/16 Escitalopram Oxalate 10 mg PO DAILY 07/22/19 Dexamethasone [Decadron] 4 mg PO DAILY #5 tab 03/15/20
[2020-03-15] MEDS ORDERED: DEXAMETHASONE INJ 10 MG/ML VIAL IM ONE (01:20)
[2020-03-15 01:23] VITALS: TEMP 98.9
--- NOTE | 2020-03-15 02:35 | RAD ---
EXAM DESCRIPTION: Chest,1 View CLINICAL HISTORY: cough COMPARISON: None. FINDINGS: Single frontal radiograph view of the chest. Cardiomediastinal silhouette: Normal size and contour. Lungs: No consolidation, pneumothorax, or pleural effusion. Bones: Partial visualization of cervical spine fixation. Upper abdomen: Prior cholecystectomy. IMPRESSION: 1. No acute pulmonary process identified. Electronically signed by: Dago Brizuela 03/15/2020 2:33 AM [facility]
[2020-03-15 02:47] VITALS: BP 131/85; O2SAT 94
== END 2020-03-15 02:47 | disposition home or self-care (01) ==
LOC: ER 01:02
DX: U07.1 COVID-19 (principal); J45.909 Unspecified asthma, uncomplicated; E07.9 Disorder of thyroid, unspecified; F17.200 Nicotine dependence, unspecified, uncomplicated; Z79.899 Other long term (current) drug therapy; Z88.8 Allergy status to other drugs, medicaments and biological substances; Z88.1 Allergy status to other antibiotic agents; Z88.0 Allergy status to penicillin
CPT/HCPCS: 71045; 87635; J1100

== ENCOUNTER 2020-03-17 09:29 | Emergency (ER) | payer SELFPAY, OTHER ==
[2020-03-17] MEDS ORDERED: ONDANSETRON INJ 4 MG/2 ML VIAL IV ONE (09:52)
[2020-03-17] MEDS ORDERED: SODIUM CHLORIDE 0.9% 1000ML 1,000 ML IVS ONE (09:52)
--- NOTE | 2020-03-17 09:55 | ED.PDOC ---
History of Present Illness - General Chief Complaint: GI Problem Stated Complaint: COVID +, N/V, Diarrhea Time Seen by Provider: 03/17/20 09:42 Additional Information: Patient is a 54-year-old female who presents to the ED with chief complaint of vomiting and diarrhea. Patient was diagnosed with Covid several days ago. Her symptoms began on with fatigue, myalgia, dry cough and shortness of breath. Beginning yesterday patient began with nausea, vomiting and diarrhea. She feels very weak and dehydrated. Patient denies chest pain. She has persistent mild shortness of breath and cough, not worsening, just persistent. She has had no fever. Patient is otherwise asymptomatic. Review of Systems - Review of Systems Constitutional: States: malaise, weakness. Denies: chills, fever EENTM: Denies: throat swelling Respiratory: States: cough, short of breath Cardiology: Denies: chest pain, palpitations Gastrointestinal/Abdominal: States: diarrhea, nausea, vomiting. Denies: abdominal pain Genitourinary: Denies: dysuria Musculoskeletal: States: muscle pain Neurological: States: no symptoms reported All other Systems: Reviewed and Negative Past Medical History (General) - Patient Medical History Hx Seizures: No Hx Stroke: No Hx Dementia: No Hx Asthma: Yes Hx of COPD: No Hx Cardiac Disorders: No Hx Congestive Heart Failure: No Hx Pacemaker: No Hx Hypertension: No Hx Thyroid Disease: Yes Hx Diabetes: No Hx Gastroesophageal Reflux: No Hx Renal Disease: No Hx Cancer: No Hx of HIV: No Hx Hepatitis C: No Hx MRSA: No Surgical History: appendectomy, cholecystectomy, Hysterectomy - Vaccination History Hx Tetanus, Diphtheria Vaccination: No Hx Influenza Vaccination: No Hx Pneumococcal Vaccination: No - Social History Hx Tobacco Use: Yes Hx Chewing Tobacco Use: No Hx Alcohol Use: Yes Hx Substance Use: No Hx Substance Use Treatment: No Hx Depression: No Hx Physical Abuse: No Hx Emotional Abuse: No Hx Suspected Abuse: No - Activities of Daily Living Hospice Agency (if applicable):: None - Female History Patient is a Female of Child Bearing Age (10 -59 yrs old): No Patient : No Family Medical History - Family History Brother Living Status: Hx Family Cancer: Yes - melanoma-brother,leukemia-mom, Hx Family;Other: non hodgkins lymphoma daughter Mother Living Status: Still Living Hx Family Cancer: Yes - leukemia Father Living Status: Still Living Hx Family Hypertension: Yes Hx Cardiac Disease: Yes Physical Exam - Physical Exam General Appearance: Alert, No apparent distress, Ill Appearing - mild, Other - Generally weak Eyes, Ears, Nose, Throat Exam: normal ENT inspection, pharynx normal Neck: non-tender, full range of motion, supple Respiratory: chest non-tender, lungs clear, normal breath sounds, no respiratory distress, no accessory muscle use Cardiovascular/Chest: normal peripheral pulses, regular rate, rhythm, no edema, no gallop, no JVD, no murmur Peripheral Pulses: No deficit Gastrointestinal/Abdominal: normal bowel sounds, non tender, no organomegaly Back Exam: normal inspection, no CVA tenderness Extremity: normal range of motion, non-tender, normal inspection, no pedal edema Neurologic: principal electrical engineer II-XII nml as tested, no motor/sensory deficits, alert, normal mood/affect, oriented x 3 Skin Exam: normal color, warm/dry Lymphatic: no adenopathy Progress - Progress Progress: 03/17/20 09:57 Differential diagnosis includes but is not limited to Covid, electrolyte disorder, volume depletion, pneumonia 03/17/20 11:13 Patient reassessed and she is feeling much better following IV fluids and antiemetics. Patient has had no episode of vomiting or diarrhea in the ED. Her labs are unremarkable with the exception of mild hypokalemia corrected with oral potassium. Patient's chest x-ray shows changes consistent with Covid pneumonia. Patient's oxygen saturation is 98% on room air and she has no respiratory concerns and is safe for discharge with follow-up outpatient. I discussed with patient return to ED for worsening symptoms to include but not limited to difficulty breathing and shortness of breath. Vital signs stable, patient is NAD and looks clinically well and I believe is safe for discharge with outpatient follow-up. Follow-up instructions, discharge instructions and return to ED precautions discussed with patient. Patient voices understanding and willingness to comply with instructions. All laboratory and radiographic results have been discussed with the patient, and all questions answered. Patient is happy with plan. Departure - Departure Clinical Impression: COVID-19, Vomiting and diarrhea, Hypokalemia, Pneumonia due to COVID-19 virus, Volume depletion Time of Disposition: 11:18 Disposition: Discharge to Home or Self Care Condition: Good Departure Forms: ED Discharge - Pt. Copy, Patient Portal Self Enrollment Instructions: Coronavirus Disease 2019 (COVID-19), Nausea and Vomiting, Adult (DC) Referrals: Philip Pineda MD [Primary Care Provider] - 1-5 Days Prescriptions: Loperamide HCl [Imodium A-D] 2 mg PO Q6HRS #15 tab Promethazine Tab [Phenergan Tablet] 25 mg PO Q6H PRN #12 tab PRN Reason: Vomiting Acetaminophen [Tylenol] 650 mg PO Q6H #50 tab Albuterol Inhaler [Ventolin Hfa Inhaler] 2 puff INH Q4H PRN #1 inh PRN Reason: Shortness Of Breath/Wheezing Home Medications: Ambulatory Orders Carbamazepine [Tegretol] 200 mg PO BEDTIME 06/04/16 Escitalopram Oxalate 10 mg PO DAILY 07/22/19 Dexamethasone [Decadron] 4 mg PO DAILY #5 tab 03/15/20 Acetaminophen [Tylenol] 650 mg PO Q6H #50 tab 03/17/20 Albuterol Inhaler [Ventolin Hfa Inhaler] 2 puff INH Q4H PRN #1 inh 03/17/20 Loperamide HCl [Imodium A-D] 2 mg PO Q6HRS #15 tab 03/17/20 Promethazine Tab [Phenergan Tablet] 25 mg PO Q6H PRN #12 tab 03/17/20
[2020-03-17] MEDS ORDERED: DIPHENOXYLATE HCL/ATROPINE 2.5 MG TAB PO ONE (09:58)
[2020-03-17] MEDS ORDERED: DIPHENOXYLATE HCL/ATROPINE 2.5 MG TAB ONE (10:07)
--- NOTE | 2020-03-17 11:06 | RAD ---
EXAM: Chest,1 View INDICATION: 54 years Female, SOB COMPARISON: Single view of the chest 03/15/2020 FINDINGS: Single view of the chest was performed. Heart size is within normal limits. Subtle opacities in the peripheral left midlung and probably in the peripheral right lung base near the costophrenic sulcus. No sizable pleural effusion. No pneumothorax. Degenerative changes in the spine. Surgical clips in the right upper quadrant. IMPRESSION: Subtle opacities in the peripheral left mid lung and in the right lung base could represent developing infiltrates. Electronically signed by: Carolina Jaramillo MD 03/17/2020 11:04 AM [facility]
[2020-03-17] MEDS ORDERED: POTASSIUM CHLORIDE 20 MEQ TAB PO ONE (11:13)
[2020-03-17 11:45] VITALS: BP 133/79; TEMP 97.8; O2SAT 97
== END 2020-03-17 11:35 | disposition home or self-care (01) ==
LOC: ER 09:29
DX: U07.1 COVID-19 (principal); J12.89 Other viral pneumonia; E87.6 Hypokalemia; E86.9 Volume depletion, unspecified; E07.9 Disorder of thyroid, unspecified; J45.909 Unspecified asthma, uncomplicated; Z87.891 Personal history of nicotine dependence
CPT/HCPCS: 36415; 71045; 80053; 83605; 85025; 85379; J2405; J7030